=== PATIENT | male | born 1965 | race African-American/Black ===

== ENCOUNTER 2018-10-06 08:23 | Emergency (ER) | payer BC ==
[~2018-10-06] VITALS: Ht 185.4 cm; Wt 72.6 kg
[2018-10-06 08:24] VITALS: BP 106/63
[2018-10-06 09:01] LABS: URINE BLOOD TRACE (Negative); URINE CLARITY CLEAR; URINE COLOR YELLOW; URINE GLUCOSE-RANDOM* NEGATIVE (Negative); URINE KETONES TRACE (Negative); URINE LEUKOCYTES-REFLEX TRACE (Negative); URINE NITRITE-REFLEX NEGATIVE (Negative); URINE PROTEIN (DIPSTICK) 1+ (Negative); URINE SPECIFIC GRAVITY 1.025 (1.005-1.035)
[2018-10-06 09:03] LABS: ICTOTEST (BILI CONFIRMATORY) Negative (Negative); URINE BILIRUBIN NEGATIVE (Negative)
[2018-10-06 09:05] LABS: HEMATOCRIT 37.4 % (42.0-52.0); HEMOGLOBIN 12.6 gm/dL (14.0-18.0); MCH 33.3 pg (26.0-34.0); MCHC 33.7 g/dL (28.0-37.0); MCV 98.6 fL (80.0-100.0); RBC 3.8 mil/uL (4.50-6.00); RDW 12.1 % (10.5-14.5); WBC 15.2 thou/uL (4.0-11.0)
[2018-10-06 09:12] LABS: CALCIUM 9.2 mg/dL (8.5-10.1); POTASSIUM 3.9 mmol/L (3.5-5.1)
[2018-10-06 09:19] LABS: ALBUMIN 3.4 g/dL (3.4-5.0); TOTAL BILIRUBIN 0.8 mg/dL (<0.1-1.0); TOTAL PROTEIN 7.5 g/dL (6.4-8.2)
[2018-10-06 10:33] VITALS: BP 108/56
[2018-10-06] MEDS ORDERED: BACTRIM DS TAB1 EACH PO (12:20)
[2018-10-06] MEDS ORDERED: ALBENDAZOLE200 MG PO (12:20)
[2018-10-06] MEDS ORDERED: ZOFRAN4 MG PO (12:21)
[2018-10-06 12:47] VITALS: BP 94/56
== END 2018-10-06 12:47 | disposition left against medical advice (07) ==
LOC: ER 08:23 → EROBS 10:28 → ER 12:47
PROVIDERS: Student in an Organized Health Care Education/Training Program
DX: L03.311 Cellulitis of abdominal wall (principal); B80 Enterobiasis; Z88.5 Allergy status to narcotic agent

== ENCOUNTER 2018-10-10 08:28 | Emergency (ER) | payer BC ==
[~2018-10-10] VITALS: Ht 185.4 cm; Wt 72.6 kg
[~2018-10-10 08:28] MED LIST: ALBENDAZOLE200 MG PO; BACTRIM DS TAB1 EACH PO; ZOFRAN4 MG PO
[2018-10-10 11:00] VITALS: BP 131/74
== END 2018-10-10 11:02 | disposition home or self-care (01) ==
LOC: ER 08:28
DX: L02.416 Cutaneous abscess of left lower limb (principal); L03.116 Cellulitis of left lower limb